=== PATIENT | male | born 1935 | race Caucasian/White ===

== ENCOUNTER 2019-05-04 01:03 | Emergency (ER) | payer MEDICARE, SELFPAY ==
[2019-05-04 01:52] LABS: PTT 34.9 SEC (22.9-36.1); Prothrombin Time 13.5 SEC (12.0-14.7)
[2019-05-04 01:54] LABS: Hemoglobin 12.3 g/dL (14.0-18.0); Mean Corpuscular HGB CONC 34.2 g/dL (32.0-36.0); Mean Corpuscular Hemoglobin 29.1 pg (27.0-31.0); Mean Corpuscular Volume 85.2 fL (78.0-98.0); Mean Platelet Volume 7.6 fL (7.4-10.4); Platelet Count 182 thou/uL (130-400); RBC Distribution Width 13.1 % (11.5-14.5); Red Blood Cell (RBC) Count 4.22 mill/uL (4.70-6.10); White Blood Cell (WBC) Count 3.1 thou/uL (4.8-10.8)
[2019-05-04 02:05] LABS: ALT (SGPT) 17 U/L (8-55); AST (SGOT) 19 U/L (5-34); Albumin 3.7 g/dL (3.4-4.8); Alkaline Phosphatase 127 U/L (40-110); Anion Gap 11 mmol/L (10-20); BUN (Urea Nitrogen) 26 mg/dL (8.4-25.7); Bilirubin, Total 1.5 mg/dL (0.2-1.2); Calc. Creatinine Clearance 0 mL/min (70-130); Calcium 8.9 mg/dL (7.8-10.44); Carbon Dioxide 27 mmol/L (23-31); Chloride 110 mmol/L (98-107); Estimated GFR-MDRD 47; Glucose 97 mg/dL (83-110); Protein, Total 6.7 g/dL (5.8-8.1); Sodium 144 mmol/L (136-145)
[2019-05-04 02:14] LABS: Band 6 % (5-11); Eosinophils 3 % (0-10); Lymphocytes 39 % (21-51); MDiff Complete? YES; Monocytes 15 % (0-10); Neutrophil 37 % (42-75)
[2019-05-04 02:55] LABS: Bilirubin Negative (Negative); Blood, Urine Negative (Negative); Clarity Clear (Clear); Glucose, Urine (Dipstick) Negative (Negative); Leukocyte Negative (Negative); Nitrite Negative (Negative); Protein, Urine (Dipstick) Negative (Neg-Trace); Urobilinogen 0.2 mg/dL (Less than 2)
--- NOTE | 2019-05-04 07:51 | CT ---
PRELIMINARY REPORT/[facility]/EMERGENCY AFTER HOURS PROCEDURE: EXAM: CT Head and Cervical Spine Without IV contrast. CLINICAL HISTORY: Found in elevated. Providers report altered speech and bilateral weakness. Follows commands. Pain bill rywhere. PERRLA but pinpoint. BG 136. EKG paced- normal. No injuries TECHNIQUE: Axial computed tomography images were acquired of the head and the cervical spine without intravenous contrast. Sagittal and coronal reformatted images were obtained of the cervical spine. COMPARISON: None provided. FINDINGS: BRAIN: No acute intraparenchymal hemorrhage. No mass lesion. No CT evidence for acute territorial infarct. N o midline shift or extra-axial collection. 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 Periventricular and subcortical white matter hyp odensities compatible with small vessel ischemic changes. Atherosclerotic calcification of the carotid arteries. VENTRICLES No hydrocephalus. Age-related atrophy. ORBITS The orbits are unremarkable. SINUSES AND MASTOIDS The paranasal sinuses and mastoid air cells are clear. SOFT TISSUES No significant facial or scalp soft tissue swelling evident. No radiopaque foreign body is seen. BONES No acute osseous pathology evident. No acute fracture is evident on images of the head or cervical spine. DISKS/DEGENERATIVE CHANGES Multilevel intervertebral disc space loss, uncovertebral hypertrophy and disc osteophyte complex with bilateral facet arthroses. Disc contact of the ventral cord at C3-C4 and C5-C6. IMPRESSION: 1. No acute intracranial findings. No acute intracranial injury evident. 2. 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 3. No cervical spine fracture evident. 4. Moderate diffuse cervical spondylosis. ELECTRONICALLY SIGNED BY: Ruperto Escobedo M.D. May 04, 2019 3:26:59 AM CDT This report is intended for review by the ordering physician only, in accordance of law. If you recei ve this report in error, please call [facility] at [phone]. FINAL REPORT EMERGENCY AFTER HOURS CT BRAIN WITHOUT CONTRAST: INDICATION: Found in elevator with altered speech and bilateral weakness. FINDINGS: I agree with the preliminary report provided by [facility]. No acute intracranial abnormality i s evident. There is severe chronic small vessel white matter ischemic change with a remote right fron renata subcortical infarct. Septum pellucidum and third ventricle are midline. There is generalized cere bral and cerebellar atrophy. There is postprocedural change of a right mastoidectomy. Skull intact. IMPRESSION: No acute intracranial abnormality. POS: BH
--- NOTE | 2019-05-04 07:53 | CT ---
PRELIMINARY REPORT/[facility]/EMERGENCY AFTER HOURS PROCEDURE: EXAM: CT Head and Cervical Spine Without IV contrast. CLINICAL HISTORY: Found in elevated. Providers report altered speech and bilateral weakness. Follows commands. Pain bill rywhere. PERRLA but pinpoint. BG 136. EKG paced- normal. No injuries TECHNIQUE: Axial computed tomography images were acquired of the head and the cervical spine without intravenous contrast. Sagittal and coronal reformatted images were obtained of the cervical spine. COMPARISON: None provided. FINDINGS: BRAIN: No acute intraparenchymal hemorrhage. No mass lesion. No CT evidence for acute territorial infarct. N o midline shift or extra-axial collection. 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 Periventricular and subcortical white matter hyp odensities compatible with small vessel ischemic changes. Atherosclerotic calcification of the carotid arteries. VENTRICLES No hydrocephalus. Age-related atrophy. ORBITS The orbits are unremarkable. SINUSES AND MASTOIDS The paranasal sinuses and mastoid air cells are clear. SOFT TISSUES No significant facial or scalp soft tissue swelling evident. No radiopaque foreign body is seen. BONES No acute osseous pathology evident. No acute fracture is evident on images of the head or cervical spine. DISKS/DEGENERATIVE CHANGES Multilevel intervertebral disc space loss, uncovertebral hypertrophy and disc osteophyte complex with bilateral facet arthroses. Disc contact of the ventral cord at C3-C4 and C5-C6. IMPRESSION: 1. No acute intracranial findings. No acute intracranial injury evident. 2. 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 3. No cervical spine fracture evident. 4. Moderate diffuse cervical spondylosis. ELECTRONICALLY SIGNED BY: Ruperto Escobedo M.D. May 04, 2019 3:26:59 AM CDT This report is intended for review by the ordering physician only, in accordance of law. If you recei ve this report in error, please call [facility] at [phone]. FINAL REPORT EMERGENCY AFTER HOURS CT CERVICAL SPINE: I agree with the preliminary report provided by [facility]. No acute fracture or subluxation is evident. There is mild to moderate multilevel cervical spondylosis. Craniocervical junction is prese rved. Osseous central canal appears relatively well preserved. Prevertebral soft tissues are normal a ppearing. Lung apices are clear. POS: BH
== END 2019-05-04 04:24 ==
LOC: ERS 01:03
DX: F03.90 Unspecified dementia, unspecified severity, without behavioral disturbance, psychotic disturbance, mood disturbance, and anxiety (principal); Z79.899 Other long term (current) drug therapy
CPT/HCPCS: 36415; 51701; 70450; 72125; 80053; 81003; 83880; 84484; 85025; 85610; 85730; 93005

== ENCOUNTER 2019-05-12 09:27 | Emergency (ER) | payer MEDICARE ==
[2019-05-12 09:58] LABS: #Eosinphils 0.1 thou/uL (0.0-0.7); #Lymphocytes 0.6 thou/uL (1.20-3.40); #Monocytes 0.3 thou/uL (0.11-0.59); #Neutrophils 1.7 thou/uL (1.40-6.50); %Basophils 0.3 % (0.0-1.0); %Lymphocytes 21.6 % (21.0-51.0); %Monocytes 11.7 % (0.0-10.0); %Neutrophils 64.4 % (42.0-75.0); Hemoglobin 12.2 g/dL (14.0-18.0); Mean Corpuscular HGB CONC 31.6 g/dL (32.0-36.0); Mean Corpuscular Hemoglobin 27.5 pg (27.0-31.0); Mean Corpuscular Volume 86.9 fL (78.0-98.0); Mean Platelet Volume 7.5 fL (7.4-10.4); Platelet Count 183 thou/uL (130-400); RBC Distribution Width 13.7 % (11.5-14.5); Red Blood Cell (RBC) Count 4.45 mill/uL (4.70-6.10); White Blood Cell (WBC) Count 2.7 thou/uL (4.8-10.8)
--- NOTE | 2019-05-12 10:00 | RAD ---
Exam: Chest one view HISTORY:Syncope. Comparison: None FINDINGS: Lines and tubes: There are sternotomy wires and 3-lead left-sided transvenous pacemaker. Lead positio n over the region right atrium, right ventricle and coronary sinus Cardiac silhouette:Normal cardiac silhouette. Aorta: Atherosclerosis of the aorta Pulmonary vessels: Normal Costophrenic angles: Clear LUNGS: No masses or consolidation. Pneumothorax: None Osseous abnormalities: None IMPRESSION: 1. No acute cardiac pulmonary process. 2. Atherosclerosis.
[2019-05-12 10:12] LABS: ALT (SGPT) 11 U/L (8-55); AST (SGOT) 17 U/L (5-34); Albumin 3.7 g/dL (3.4-4.8); Alkaline Phosphatase 109 U/L (40-110); Anion Gap 10 mmol/L (10-20); BUN (Urea Nitrogen) 18 mg/dL (8.4-25.7); Bilirubin, Total 1.4 mg/dL (0.2-1.2); Calc. Creatinine Clearance 0 mL/min (70-130); Calcium 9.1 mg/dL (7.8-10.44); Carbon Dioxide 28 mmol/L (23-31); Chloride 107 mmol/L (98-107); Estimated GFR-MDRD 47; Globulin 3.5 g/dL (2.4-3.5); Glucose 165 mg/dL (83-110); Lipase 11 U/L (8-78); Magnesium 2.3 mg/dL (1.6-2.6); Potassium 4.1 mmol/L (3.5-5.1); Protein, Total 7.2 g/dL (5.8-8.1); Sodium 141 mmol/L (136-145)
--- NOTE | 2019-05-12 10:22 | CT ---
Exam: Head CT without contrast HISTORY: Altered mental status COMPARISON: 05/04/2019 FINDINGS: Hemorrhage: No intraparenchymal hemorrhage or extra-axial hematoma. Brain parenchyma: Cortical hastings-white matter differentiation is preserved. No mass effect or midline shift. Basilar cisterns are patent.Chronic small vessel ischemic changes white matter. Stable encephalomalacia and gliosis involving the right frontal lobe. Ventricular system: Ventricles and sulci are patent and symmetric. Calvarium: Intact. Sinuses and mastoid air cells: Chronic postoperative changes involving the right mastoid air cells. IMPRESSION: 1. No acute intracranial process. 2. Stable encephalomalacia and gliosis in the right frontal lobe. Stable chronic small vessel ischemi c changes of the white matter
[2019-05-12 11:28] LABS: Bilirubin Negative (Negative); Blood, Urine Trace (Negative); Clarity Extra Turbid (Clear); Glucose, Urine (Dipstick) Normal (Negative); Leukocyte 500 Leu/uL (Negative); Nitrite Negative (Negative); Protein, Urine (Dipstick) 30 mg/dL (Neg-Trace); Urobilinogen Normal mg/dL (Less than 2); WBC/HPF Greater than 50 HPF (0-3)
[2019-05-12 11:37] LABS: Bacteria/HPF 4+ HPF (None Seen); Squamous Epithelial 0-3 HPF (0-3)
[2019-05-12] MEDS ORDERED: cefTRIAXone\\ROCEPHIN 1 GM VIAL ONE (11:51)
--- NOTE | 2019-05-14 15:12 | EKG ---
Test Reason : Blood Pressure : / mmHG Vent. Rate : 085 BPM Atrial Rate : 084 BPM P-R Int : 000 ms QRS Dur : 200 ms QT Int : 452 ms P-R-T Axes : 000 069 054 degrees QTc Int : 537 ms Electronic ventricular pacemaker Confirmed by JEFF MEDINA DO ([id number]), video editor JOON STRICKLAND ([id number]) on 05/14/2019 3:11:58 PM Referred By: Confirmed By:JEFF MEDINA DO
== END 2019-05-12 12:45 ==
LOC: ERS 09:27
DX: N39.0 Urinary tract infection, site not specified (principal); R55 Syncope and collapse
CPT/HCPCS: 36415; 70450; 71045; 80053; 81003; 81015; 83605; 83690; 83735; 85025; 87086; 93005; J0696

== ENCOUNTER 2019-11-07 13:50 | Emergency (ER) | payer MEDICARE, OTHER ==
[2019-11-07] MEDS ORDERED: Boostrix 0.5 ML VIAL ONE (14:22)
--- NOTE | 2019-11-07 14:26 | RAD ---
Exam: XR Knee Rt 4 View STANDARD HISTORY: Injury to right knee COMPARISON: None FINDINGS: Mild right knee osteoarthritis is present. No acute fracture, dislocation, or other acute osseous abnormality is identified. Prominent vascular calcifications are seen in the region of the tibial peroneal vessels. IMPRESSION: No acute osseous abnormality is identified.
--- NOTE | 2019-11-07 17:31 | CT ---
NONCONTRAST CT HEAD: 11/07/19 HISTORY: Fall from standing at half-way. Injury. Patient has dementia and altered mental status from basel ine. COMPARISON: 05/12/19. FINDINGS: Again noted is a stable areas of encephalomalacia and gliosis involving the right anterior frontal lo be. Again noted is diminished attenuation of the periventricular white matter which is nonspecific bu t likely reflective of chronic small vessel ischemic changes. There is no evidence of an acute cortic al infarction, hemorrhage, mass effect, or midline shift. Stable low density focus in the left basal ganglia is likely related to remote lacunar infarction. Mild cerebral volume loss is present. The ventricular system is normal in size, shape and position. No depressed calvarial fracture is seen. There is evidence of right mastoidectomy. The visualized par anasal sinuses are clear. IMPRESSION: 1. No acute intracranial abnormality demonstrated. 2. Stable chronic changes. POS: FAITH
--- NOTE | 2019-11-07 17:37 | CT ---
NONCONTRAST CT CERVICAL SPINE: 11/07/19 HISTORY: Fall from standing position at [facility]. Altered mental status from baseline. Injury to cervical spine. COMPARISON: 05/04/19. TECHNIQUE: Contiguous axial CT images are obtained through the cervical spine from the skull base to the T1-2 le margo. Sagittal and coronal reformatted images are provided. FINDINGS: Multilevel degenerative changes are again seen with prominent facet hypertrophic changes at multiple levels. Degenerative change in the cervical spine are overall stable compared to the prior study. Aga in noted is fusion of the C2 and C3 vertebral bodies. Prevertebral soft tissues are within normal limits. Vascular calcifications are seen in the carotid arteries. Calcifications seen in the left lobe of the thyroid gland with heterogeneity of each lobe of the thyroid gland and suggestion of tiny subcentime ter nodules in each lobe of the thyroid gland. Limited visualized lung apices are clear with minimal apical pleural and parenchymal scarring seen. IMPRESSION: 1. Overall stable cervical spondylosis. 2. No acute osseous abnormality involving the cervical spine. 3. Evidence of right mastoidectomy. POS: LIDYA
== END 2019-11-07 16:19 ==
LOC: ERS 13:50
DX: S09.90XA Unspecified injury of head, initial encounter (principal); S80.01XA Contusion of right knee, initial encounter; G30.9 Alzheimer's disease, unspecified; F02.80 Dementia in other diseases classified elsewhere, unspecified severity, without behavioral disturbance, psychotic disturbance, mood disturbance, and anxiety; Z79.899 Other long term (current) drug therapy; Z23 Encounter for immunization; Z79.01 Long term (current) use of anticoagulants; W18.30XA Fall on same level, unspecified, initial encounter; Y92.129 Unspecified place in nursing home as the place of occurrence of the external cause
CPT/HCPCS: 70450; 72125; 90471; 90715

== ENCOUNTER 2020-01-19 15:01 | Emergency (ER) | payer MEDICARE ==
[2020-01-19] MEDS ORDERED: Lidocaine 1% w/Epinephrine 1:100K 20 ML VIAL ONE (15:22)
--- NOTE | 2020-01-19 15:49 | CT ---
CT brain without contrast HISTORY: Trauma, dementia, hit head on wooden floor with laceration to forehead. Comparison 11/07/2019 FINDINGS: Again noted is a stable area of encephalomalacia and gliosis involving the right anterior frontal lo be. Again noted is diminished attenuation of the periventricular white matter which is nonspecific but likely reflective of chronic small vessel ischemic changes. There is no evidence of an acute charlie ical infarction, hemorrhage, mass effect, or midline shift. Stable low density focus in the left basal ganglia is likely related to remote lacunar infarction. Mild cerebral volume loss is present. T he ventricular system is normal in size, shape and position. No depressed calvarial fracture is seen. There is evidence of right mastoidectomy. The visualized paranasal sinuses are clear. IMPRESSION: 1. No acute intracranial abnormality demonstrated. 2. Stable chronic changes.
[2020-01-19] MEDS ORDERED: Boostrix 0.5 ML (Tdap) VIAL ONE (16:35)
== END 2020-01-19 17:08 ==
LOC: ERS 15:01
DX: S01.81XA Laceration without foreign body of other part of head, initial encounter (principal); Z23 Encounter for immunization; Z79.01 Long term (current) use of anticoagulants; Z79.899 Other long term (current) drug therapy; W19.XXXA Unspecified fall, initial encounter
CPT/HCPCS: 12002; 70450; 90471; 90715